=== PATIENT | male | born 1950 | race Caucasian/White ===

== ENCOUNTER 2019-08-28 07:53 | Outpatient (CLI) | payer MEDICARE, OTHER ==
--- NOTE | 2019-08-27 15:15 | NUR ---
spoke to pt regarding procedure and what to expect.
[~2019-08-28] VITALS: Ht 188 cm; Wt 88.2 kg
[2019-08-28] VITALS (11 sets, daily range): BP systolic 114–147; BP diastolic 67–79; PULSE 51–58; TEMP 98.1
[~2019-08-28 07:53] MED LIST: ALDACTONE 25MG25 M1 PO; ASPIRIN 81M81 MG/TA2 PO; CLARITIN 1010 MG/TAB PO; COZAAR 50MG50 MG/TAB PO; GLUCOPHAGE1000 MG PO; ISOSORBIDE MON120 MG PO; JANUVIA50 MG PO; K-DUR 10 MEQ T10 MEQ PO; LASIX 40MG TABL40 MG PO; LIPITOR 80MG80 MG PO; NITROSTAT0.4 MG/TAB SL; PLAVIX 75MG TAB75 MG PO; RANEXA 500MG T500 MG PO; SYNTHROID0.1 MG/TAB PO; TOPROL XL 25MG25 MG PO; TYLENOL 325MG325 MG PO
[2019-08-28 08:25] LABS: HEMATOCRIT 42.3 % (42.0-52.0); HEMOGLOBIN 14.1 g/dl (13.5-18.0); MEAN CELL VOLUME 94 fl (80.0-100.0); MEAN CORPUSCULAR HEMOGLOBIN 31 pg (27.0-31.0); MEAN CORPUSCULAR HGB CONC 33 g/dl (33.0-37.0); MEAN PLATELET VOLUME 9.5 fl (7.4-10.4); PLATELET COUNT 218 K/mm3 (130-400); RED BLOOD COUNT 4.52 M/mm3 (4.20-5.60); REDCELL DISTRIBUTION WIDTH-CV 12.5 % (11.5-14.5)
[2019-08-28] MEDS ORDERED: GLUCOPHAGE500 MG/TAB PO (08:30)
[2019-08-28] MEDS ORDERED: RANEXA 500MG T500 MG PO ×2 (08:31→12:40)
[2019-08-28] MEDS ORDERED: CRESTOR40 MG PO (08:31)
[2019-08-28 08:36] LABS: CALCIUM 9.4 mg/dL (8.4-10.2); CREATININE, serum 1.07 (0.66-1.25); POTASSIUM 4.6 mmol/L (3.4-5.0)
[2019-08-28 08:55] LABS: PROTHROMBIN TIME 10.9 SECONDS (9.7-12.8)
--- NOTE | 2019-08-28 09:31 | NUR ---
SEE MERGE DOCUMENTATION FOR MEDICATION ADMINISTRATION AND INTRA/POST PROCEDURE SEDATION ASSESSMENTS.
--- NOTE | 2019-08-28 11:00 | NUR ---
Pt back from labor relations teacher, bs report from Elly AMAYA. Pt is awake and alert, pwd, cms is intact to rt hand, TR band in place with 16 cc in band. wctm.
[2019-08-28] MEDS ORDERED: IMDUR 60MG60 MG/TAB PO (12:42)
--- NOTE | 2019-08-28 14:20 | NUR ---
Pt to exit at this time via wheelchair, is with pt. dc/rx and f/u instructions have been reviewed, no questions. iv was dc'd with cath intact, dressing applied. rt radial puncture site looks good, no bleeding or hematoma, it is dressed with a bandaid. pt has done well otherwise, he has been able to eat lunch with no problem and is steady on his feet without dizziness etc.
== END 2019-08-28 14:20 | disposition home or self-care (01) ==
LOC: COL.RAD 07:53
PROVIDERS: Internal Medicine Cardiovascular Disease
DX: I34.0 Nonrheumatic mitral (valve) insufficiency (principal); I25.2 Old myocardial infarction; Z20.828 Contact with and (suspected) exposure to other viral communicable diseases
CPT/HCPCS: C1769; C1887; J1644; J2250; J2704; J3010; Q9967

== ENCOUNTER 2021-09-29 08:16 | Day surgery (SDC) | payer MEDICARE, OTHER ==
[~2021-09-29] VITALS: Ht 188 cm; Wt 87.4 kg
[2021-09-29] VITALS (15 sets, daily range): BP systolic 114–151; BP diastolic 55–86; PULSE 48–59; TEMP 97.7–98.5
[~2021-09-29 08:16] MED LIST changes: +CRESTOR40 MG PO; +GLUCOPHAGE500 MG/TAB PO; +IMDUR 60MG60 MG/TAB PO
[2021-09-29 09:12] LABS: HEMATOCRIT 41.4 % (42.0-52.0); HEMOGLOBIN 13.9 g/dl (13.5-18.0); MEAN CELL VOLUME 93 fl (80.0-100.0); MEAN CORPUSCULAR HEMOGLOBIN 31 pg (27-31); MEAN CORPUSCULAR HGB CONC 34 g/dl (33.0-37.0); MEAN PLATELET VOLUME 9.6 fl (7.4-10.4); PLATELET COUNT 193 K/mm3 (130-400); RED BLOOD COUNT 4.44 M/mm3 (4.20-5.60); REDCELL DISTRIBUTION WIDTH-CV 12.8 % (11.5-14.5)
[2021-09-29 09:15] LABS: PROTHROMBIN TIME 10.9 SECONDS (9.7-12.8)
[2021-09-29 09:18] LABS: PARTIAL THROMBOPLASTIN TIME 32.2 SECONDS (26.0-37.0)
[2021-09-29 09:23] LABS: CALCIUM 9.7 mg/dL (8.4-10.2); CREATININE, serum 1.27 mg/dL (0.72-1.25); POTASSIUM 4.6 mmol/L (3.5-4.5)
--- NOTE | 2021-09-29 09:51 | NUR ---
See merge for all medication, assessment, intervention, and vital sign times.
[2021-09-29] MEDS ORDERED: COLACE 100100 MG/CAP PO (09:54)
[2021-09-29] MEDS ORDERED: CARDENE 20MG CA20 M1 PO (09:54)
--- NOTE | 2021-09-29 11:43 | NUR ---
RECEIVED REPORT FROM JOSE LUIS BILLY THAT WOULD NOT BE COMING BACK TO [place].
--- NOTE | 2021-09-29 12:10 | NUR ---
PATIENT ADMITED INTO ROOM 347 POST OP FROM PROJECTS MANAGER. A&O. VSS WITH TELE INPLACE. NO C/O PAIN OR NAUSEA. TR BAND WITH 14CC OF AIR TO RIGHT WRIST, SITE LOOKS GOOD AND NO HEMATOMA NOTED. CARDIAC SOUNDS REGULAR IN THE 50'S. HEAD TO TOE ASSESSMENT WNL. AHA DIET. POST OP FLUIDS INFUSING INTO LEFT AC IV. ORIENTED TO ROOM. FAMILY AT BEDSIDE. NO OTHER NEEDS. CALL LIGHT IN REACH.
--- NOTE | 2021-09-29 17:30 | NUR ---
PATIENT AMBULATING IN HALLWAYS. GAIT STEADY. TOLERATING ACTIVITY WELL
--- NOTE | 2021-09-29 18:15 | NUR ---
RIGHT WRIST TR BAND OFF, NO BLEEDING, SITE WELL APPROXIMATED. PATIENT DOING WELL. NO NEEDS.
--- NOTE | 2021-09-29 20:00 | NUR ---
PT UP IN ROOM INDEPENDENTLY. RT RADIAL HEART CATH SITE WITH BANDAID, DRY WITHOUT HEMATOMA. INT TO LEFT AC. DENIES PAIN AT THIS TIME.
--- NOTE | 2021-09-29 21:30 | NUR ---
PT TAKES HS MEDS. DENIES PAIN AT THIS TIME.
[2021-09-30 04:13] VITALS: BP 119/67; PULSE 51; TEMP 98
--- NOTE | 2021-09-30 06:00 | NUR ---
NO CONCERNS OFFERED THIS AM. RT RADIAL SITE SOFT.
[2021-09-30 06:44] LABS: BASO % 0.6 % (0.0-2.0); EOS # 0.1 K/mm3 (0.0-0.7); EOS % 1.1 % (0.0-4.0); GRAN # 4.5 K/mm3 (1.4-6.5); GRAN % 68.8 % (42.2-75.2); HEMATOCRIT 38.9 % (42.0-52.0); HEMOGLOBIN 13.1 g/dl (13.5-18.0); LYMPH # 1.4 K/mm3 (1.2-3.4); LYMPH % 21.5 % (20.0-51.0); MEAN CELL VOLUME 92 fl (80.0-100.0); MEAN CORPUSCULAR HEMOGLOBIN 31 pg (27-31); MEAN CORPUSCULAR HGB CONC 34 g/dl (33.0-37.0); MONO # 0.5 K/mm3 (0.1-0.6); MONO % 7.7 % (1.7-9.3); PLATELET COUNT 184 K/mm3 (130-400); RED BLOOD COUNT 4.25 M/mm3 (4.20-5.60); REDCELL DISTRIBUTION WIDTH-CV 12.8 % (11.5-14.5)
[2021-09-30 07:01] LABS: CALCIUM 8.9 mg/dL (8.4-10.2); CREATININE, serum 1.13 mg/dL (0.72-1.25); POTASSIUM 4.1 mmol/L (3.5-4.5)
[2021-09-30 07:43] VITALS: BP 131/65; PULSE 56; TEMP 97.7
--- NOTE | 2021-09-30 08:00 | NUR ---
PATIENT IS A&O. VSS ON TELE. NO COMPLAINTS. HEAD TO TOE ASSESSMENT WNL. AM MEDS GIVEN. LEFT AC IV TO INT. BREAKFAST TRAY AT BEDSIDE. PATIENT HOPING TO DISCHARGE HOME TODAY. INDEPENDENT IN ROOM. NO OTHER NEEDS. CALL LIGHT IN REACH.
--- NOTE | 2021-09-30 09:35 | NUR ---
Initial visit; Patient thanked Jockey'S Agent for looking in on him and offering God's blessings. Patient very pleasant and doing well.
--- NOTE | 2021-09-30 10:59 | NUR ---
Sales Account Associate met with patient to discuss discharge planning. Patient lives in [place] with his , Jyoti (ph#[phone]) and sees Dr. Carlin for primary care. Patient obtains medications from [facility] and does not use any DME. Patient is independent with ADLS and plans to return home at time of discharge. Patient reports his is his DPOA-HC. Discharge Plan: Home
[2021-09-30 11:53] VITALS: BP 98/52; PULSE 54; TEMP 98.5
[2021-09-30 12:34] VITALS: BP 105/63
--- NOTE | 2021-09-30 14:00 | NUR ---
PATIENT DISCHARGING HOME VIA AMBULATORY TO PERSONAL VEHICLE WITH . GAVE DISCHARGE INSTRUCTIONS, ANSWERED QUESTIONS, AND DISCUSSED F/U APT. RN DC'D IV SITE AND COVERED WITH [employer]. TELE DC'D. PATIENT IS DRESSED, PACKED AND DISCHARGED.
== END 2021-09-30 14:00 | disposition home or self-care (01) ==
LOC: COL.CAR 08:16 → SURG 12:10 → COL.CAR 09-30 14:00
PROVIDERS: Internal Medicine Cardiovascular Disease
DX: I25.10 Atherosclerotic heart disease of native coronary artery without angina pectoris (principal); I08.1 Rheumatic disorders of both mitral and tricuspid valves
CPT/HCPCS: OP; C1725; C1769; C1876; C1887; J0583; J1644; J2250; J2704; J3010; Q9967